=== PATIENT | male | born 2000 | race African-American/Black ===

== ENCOUNTER 2021-06-01 15:11 | Emergency (ER) ==
[~2021-06-01] VITALS: Ht 180.3 cm; Wt 78.2 kg
== END 2021-06-01 17:30 | disposition left against medical advice (07) ==
LOC: M ED 15:11
DX: Z53.21 Procedure and treatment not carried out due to patient leaving prior to being seen by health care provider (principal)

== ENCOUNTER 2023-10-31 23:40 | Emergency (ER) | payer OTHER ==
[~2023-10-31] VITALS: Ht 177.8 cm; Wt 76.1 kg
[2023-11-01 00:14] LABS: INR 1.09; PROTHROMBIN TIME 13.8 SECONDS (12.5-14.5)
[2023-11-01 00:41] LABS: BASO % 0.3 % (0.0-1.0); EOS # 0.1 10^3/uL (0.0-0.5); EOS % 1.8 % (0.0-3.0); HEMATOCRIT 44.3 % (42.0-52.0); HEMOGLOBIN 14.8 g/dl (13.5-17.5); LIPASE 25 U/L (12-53); LYMPH # 2.7 10^3/uL (1.5-5.0); LYMPH % 39.8 % (24.0-44.0); MEAN CORPUSCULAR HEMOGLOBIN 30.5 pg (27.0-33.0); MEAN CORPUSCULAR HGB CONC 33.4 g/dl (32.0-36.5); MEAN CORPUSCULAR VOLUME 91.2 fl (80.0-96.0); MONO # 0.6 10^3/uL (0.0-0.8); MONO % 9.2 % (2.0-8.0); NEUTROPHILS # 3.3 10^3/uL (1.5-8.5); NEUTROPHILS % 48.8 % (36.0-66.0); PLATELET COUNT, AUTOMATED 232 10^3/uL (150-450); RED BLOOD COUNT 4.86 10^6/uL (4.30-6.10); WHITE BLOOD COUNT 6.8 10^3/uL (4.0-10.0)
[2023-11-01 00:43] LABS: ALBUMIN 4.3 G/DL (3.2-5.2); ALKALINE PHOSPHATASE 95 U/L (46-116); ALT/SGPT 223 U/L (7.0-40); AST/SGOT 52 U/L (<34); BILIRUBIN,DIRECT 0.3 MG/DL (<0.4); BILIRUBIN,TOTAL 0.9 MG/DL (0.3-1.2); BLOOD UREA NITROGEN 11 MG/DL (9-23); CALCIUM LEVEL 9.5 MG/DL (8.5-10.1); CARBON DIOXIDE LEVEL 29 MMOL/L (20-31); CHLORIDE LEVEL 104 MMOL/L (98-107); CK-MB VALUE MASS 1.5 NG/ML (<3.6); CPK CREATINE PHOSPHOKINASE 622 U/L (46-171); CREATININE FOR GFR 1.23 MG/DL (0.70-1.30); GLOMERULAR FILTRATION RATE > 60.0 (>60); GLUCOSE, FASTING 86 MG/DL (60-100); MB/CK RELATIVE INDEX 0.24 (< OR =4); POTASSIUM SERUM 4.2 MMOL/L (3.5-5.1); SODIUM LEVEL 139 MMOL/L (136-145); TOTAL PROTEIN 7.6 G/DL (5.7-8.2)
[2023-11-01 02:40] VITALS: O2SAT 99
[2023-11-01 02:45] VITALS: BP 137/70; TEMP 98.2
== END 2023-11-01 02:55 | disposition home or self-care (01) ==
LOC: M ED 23:40
DX: R07.9 Chest pain, unspecified (principal); I51.7 Cardiomegaly; F17.290 Nicotine dependence, other tobacco product, uncomplicated

== ENCOUNTER 2024-12-20 10:33 | Emergency (ER) | payer OTHER ==
[~2024-12-20] VITALS: Ht 180.3 cm; Wt 72.3 kg
[2024-12-20 12:00] LABS: BASO # 0.0 10^3/uL (0.0-0.2); BASO % 0.3 % (0.0-1.0); EOS # 0.1 10^3/uL (0.0-0.5); EOS % 1.8 % (0.0-3.0); LYMPH # 1.6 10^3/uL (1.5-5.0); LYMPH % 26.1 % (24.0-44.0); MONO # 1.1 10^3/uL (0.0-0.8); MONO % 17.1 % (2.0-8.0); NEUTROPHILS # 3.4 10^3/uL (1.5-8.5); NEUTROPHILS % 54.5 % (36.0-66.0); PLATELET COUNT, AUTOMATED 176 10^3/uL (150-450)
[2024-12-20] MEDS: CLINDAMYCIN 600 MG in IV 1 EA IV ONE (12:01)
[2024-12-20 12:28] LABS: ALT/SGPT 28 U/L (7.0-40); AST/SGOT 33 U/L (<34); CALCIUM LEVEL 9.2 MG/DL (8.5-10.1); CARBON DIOXIDE LEVEL 31 MMOL/L (20-31); CHLORIDE LEVEL 101 MMOL/L (98-107); CREATININE FOR GFR 1.16 MG/DL (0.70-1.30); GLOMERULAR FILTRATION RATE > 90.0 (>60); POTASSIUM SERUM 4.2 MMOL/L (3.5-5.1); SODIUM LEVEL 141 MMOL/L (136-145)
[2024-12-20] MEDS: LIDOCAINE 1% MDV 20 ML VIAL IM ONE (14:25)
[2024-12-20] MEDS ORDERED: CLIN150C17 PO (15:00)
[2024-12-20 15:02] VITALS: BP 121/79; TEMP 100; O2SAT 100
[2024-12-20] MEDS: ACETAMINOPHEN 500 MG TAB PO ONE (15:13)
== END 2024-12-20 15:18 | disposition home or self-care (01) ==
LOC: M ED 10:33
DX: L02.416 Cutaneous abscess of left lower limb (principal); F17.220 Nicotine dependence, chewing tobacco, uncomplicated
CPT/HCPCS: 10060; 76870; 76882; 80048; 80076; 85025; 87040; 87070; 87077; 87186; 87205; 93976; 96365; 96366; 96372; 99284; J0737

== ENCOUNTER 2024-12-21 14:39 | Emergency (ER) | payer OTHER ==
[~2024-12-21] VITALS: Ht 180.3 cm; Wt 165.0 kg
[~2024-12-21 14:39] MED LIST: CLIN150C17 PO
[2024-12-21] MEDS ORDERED: CLINDAMYCIN 600 MG in IV 1 EA IV ONE (15:45)
[2024-12-21 15:57] VITALS: TEMP 96.5
[2024-12-21 16:02] VITALS: BP 131/81; O2SAT 98
== END 2024-12-21 16:03 | disposition home or self-care (01) ==
LOC: M ED 14:39
DX: Z48.00 Encounter for change or removal of nonsurgical wound dressing (principal); L02.416 Cutaneous abscess of left lower limb; Z79.899 Other long term (current) drug therapy